=== PATIENT | female | born 1940 | race Caucasian/White ===

== ENCOUNTER 2020-05-25 19:20 | Observation (INO) | payer MEDICARE, BC ==
--- NOTE | 2020-05-25 19:29 | EDM.PDOC ---
ED HPI GENERAL MEDICAL PROBLEM - General Chief Complaint: Cardiovascular Problem Stated Complaint: Dizziness Time Seen by Provider: 05/25/20 19:20 Source of Information: Reports: Patient, EMS History Limitations: Reports: No Limitations - History of Present Illness INITIAL COMMENTS - FREE TEXT/NARRATIVE: Tonight, at her residence she felt dizzy and flushed with warmth. Stated that her feet felt cold at the same time. Carpio dizzy lowered to the floor and crawled to the couch where she summoned her sister for assistance. When they arrived ambulance was called and transported to the emergency department. She is seated upright on the cart in no acute distress, demonstrating forgetfulness associated with her Alzheimer's dementia. She denies any pain or injury at this time prior to being moved onto the examination table in the emergency department from the ambulance gurney. Denies any fall or striking of her head. Denies any COVID 19 related issues stating she is predominantly at home with her sisters doing her grocery shopping for her. Has not had any contact that places her at risk. Onset: Today, Sudden Onset Date: 05/25/20 Onset Time: 18:30 Duration: Minutes: Location: Reports: Head Severity: Moderate Improves with: Reports: None Worsens with: Reports: None - Related Data Allergies Allergy/AdvReac Type Severity Reaction Status Date / Time No Known Drug Allergies Allergy Cannot Verified 05/25/20 19:58 Remember Home Meds: Home Meds Metoprolol Tartrate [Lopressor] 50 mg PO BID 10/21/14 [History] diazePAM [Diazepam] 2.5 mg PO TID PRN 10/21/14 [History] Cholecalciferol (Vitamin D3) [Vitamin D3] 2,000 unit PO QPM 05/25/20 [History] Clopidogrel Bisulfate [Clopidogrel] 75 mg PO DAILY 05/25/20 [History] Memantine HCl 5 mg PO BID 05/25/20 [History] amLODIPine Besylate [Amlodipine Besylate] 5 mg PO DAILY 05/25/20 [History] busPIRone [Buspar] 5 mg PO BEDTIME 05/25/20 [History] lisinopriL [Lisinopril] 40 mg PO DAILY 05/25/20 [History] Past Medical History HEENT History: Reports: Hard of Hearing, Impaired Vision Cardiovascular History: Reports: Heart Murmur, High Cholesterol, Hypertension Respiratory History: Reports: None Gastrointestinal History: Reports: None Genitourinary History: Reports: None, Chronic Renal Insuffiency 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 PATHOLOGIST History: Reports: Musculoskeletal History: Reports: None Neurological History: Reports: Alzheimers Disease, Headaches, Chronic, TIA, Vertigo Psychiatric History: Reports: Anxiety, Dementia Hematologic History: Reports: None Oncologic (Cancer) History: Reports: None Dermatologic History: Reports: None - Past Imaging History Past Imaging History: Reports: Cardiac Echo, Xray Social & Family History - Family History Family Medical History: Noncontributory - Living Situation & Occupation Living situation: Reports: ED ROS GENERAL - Review of Systems Review Of Systems: Comprehensive ROS is negative, except as noted in HPI. ED EXAM, GENERAL - Physical Exam Exam: See Below Free Text/Narrative:: Alert oriented to location. There is no evidence of cyanosis nor pallor. She is wearing glasses, PERRLA no icterus no injection, EOM intact. HEENT is negative to discharge or deformity. [place] moist mucous membranes with no erythema. Neck is soft supple no lymphadenopathy no JVD no carotid bruit appreciated. Thorax is clear no wheezes no crackles. Cardiac S1-S2 with a grade 1 systolic murmur best heard at the sternal margin at the base nonradiating. Abdomen is soft bowel sounds are present, there is no flank pain. There is no abdominal pain to percussion nor to palpation. 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 She is able to hold her arms straight out with no drift. She is able to move her feet in plantar flexion dorsiflexion with symmetrical strength no compensation issues. Neuro exam negative other than memory with a history of late onset Alzheimer's dementia. Exam Limited By: Other (Dementia) General Appearance: Alert EKG INTERPRETATION EKG Date: 05/25/20 Time: 19:36 Rhythm: NSR [place]: Normal P-Wave: Present QRS: Normal ST-T: Normal QT: Normal Comparison: No Change Course - Vital Signs Last Recorded V/S: Last Vital Signs Temp 36.5 C 05/25/20 19:30 Pulse 75 05/25/20 19:30 Resp 24 H 05/25/20 19:30 BP 149/87 H 05/25/20 19:30 Pulse Ox 100 05/25/20 19:30 - Orders/Labs/Meds Orders: Active Orders 24 hr Category Date Time Status Patient Status [ADT] Routine ADT 05/25/20 21:17 Ordered Cardiac Monitoring [RC] . DIRECTED Care 05/25/20 21:17 Ordered Oxygen Therapy [RC] PRN Care 05/25/20 21:02 Ordered Peripheral IV Care [RC] . DIRECTED Care 05/25/20 19:34 Active Chest 2V [CR] Stat Exams 05/25/20 19:28 Stop Req TROPONIN I [CHEM] Routine Lab 05/26/20 06:00 Ordered Sodium Chloride 0.9% [Normal Saline] 1,000 ml Med 05/25/20 19:45 Active IV ASDIRECTED Sodium Chloride 0.9% [Saline Flush] Med 05/25/20 19:33 Active 10 ml FLUSH Q8HR PRN Peripheral IV Insertion Adult [OM.PC] Routine Oth 05/25/20 19:34 Ordered Code Status [Resuscitation Status] Stat Resus Stat 05/25/20 21:16 Ordered EKG 12 Lead [EK] Urgent Ther 05/25/20 19:27 Stop Req Medication Orders Sodium Chloride (Normal Saline) 1,000 mls @ 999 mls/hr IV ASDIRECTED JOON Stop: 05/29/20 19:34 Last Admin: 05/25/20 19:52 Dose: 999 mls/hr Documented by: JOSELYN Sodium Chloride (Saline Flush) 10 ml FLUSH Q8HR PRN PRN Reason: keep vein open Labs: Laboratory Tests 05/25/20 05/25/20 05/25/20 Range/Units 19:40 19:40 19:40 WBC 6.57 (5.00-10.00) 10^3/uL RBC 4.25 (3.80-5.50) 10^6/uL Hgb 13.2 (12.0-16.0) g/dL Hct 38.3 (37.0-47.0) % MCV 90.1 (82.0-92.0) fL MCH 31.1 H (27.0-31.0) pg MCHC 34.5 (32.0-36.0) g/dL RDW 12.5 (11.5-14.5) % Plt Count 227 (150-400) 10^3/uL MPV 11.7 H (7.4-10.4) fL Immature Gran % (Auto) 0.3 (0.0-5.0) % Neut % (Auto) 60.1 (50.0-70.0) % Lymph % (Auto) 30.6 (20.0-40.0) % [place] % (Auto) 7.9 (2.0-8.0) % Eos % (Auto) 0.8 L (1.0-3.0) % Baso % (Auto) 0.3 (0.0-1.0) % Neut # (Auto) 3.95 (2.50-7.00) 10^3/uL Lymph # (Auto) 2.01 (1.00-4.00) 10^3/uL [place] # (Auto) 0.52 (0.10-0.80) 10^3/uL Eos # (Auto) 0.05 L (0.10-0.30) 10^3/uL Baso # (Auto) 0.02 (0.00-0.10) 10^3/uL Immature Gran # (Auto) 0.02 (0.00-0.50) 10^3/uL Sodium 140 (136-145) mmol/L Potassium 3.6 (3.3-5.3) mmol/L Chloride 103 (98-115) mmol/L Carbon Dioxide 24.5 (21.0-32.0) mmol/L Anion Gap 16.1 H (5-15) mmol/L BUN 23 (6-25) mg/dL Creatinine 1.14 (0.51-1.17) mg/dL Est Cr Clr Drug Dosing 30.69 mL/min Estimated GFR (MDRD) 46 mL/min Glucose 118 H (75 - 99) mg/dL Lactic Acid 1.8 (0.4-2.0) mmol/L Calcium 9.4 (8.7-10.3) mg/dL Total Bilirubin 0.4 (0.2-1.0) mg/dL AST 28 (15-37) U/L ALT 37 (12-78) U/L Alkaline Phosphatase 66 (46-116) IU/L Creatine Kinase 117 (26-276) U/L CK-MB (CK-2) 1.90 (0.00-4.30) ng/mL Troponin I 0.08 H* (0.00-0.070) ng/mL Total Protein 7.8 (6.4-8.2) g/dL Albumin 3.86 (3.00-4.80) g/dL Specimen Type Urine Color (YELLOW) Urine Appearance (CLEAR) Urine pH (5.0-9.0) Ur Specific [place] (1.005-1.030) Urine Protein (NEGATIVE) mg/dL Urine Glucose (UA) (NEGATIVE) mg/dL Urine Ketones (NEGATIVE) mg/dL Urine Occult Blood (NEGATIVE) Urine Nitrite (NEGATIVE) Urine Bilirubin (NEGATIVE) Urine Urobilinogen (0.2-1.0) E.U./dL Ur Leukocyte Esterase (NEGATIVE) Urine RBC (0-5) /HPF Urine WBC (0-5) /HPF Ur Epithelial Cells /LPF Urine Bacteria (NONE TO FEW) /HPF COVID-19 (CRISTELA) (NEGATIVE) 05/25/20 05/25/20 Range/Units 20:25 20:35 WBC (5.00-10.00) 10^3/uL RBC (3.80-5.50) 10^6/uL Hgb (12.0-16.0) g/dL Hct (37.0-47.0) % MCV (82.0-92.0) fL MCH (27.0-31.0) pg MCHC (32.0-36.0) g/dL RDW (11.5-14.5) % Plt Count (150-400) 10^3/uL MPV (7.4-10.4) fL Immature Gran % (Auto) (0.0-5.0) % Neut % (Auto) (50.0-70.0) % Lymph % (Auto) (20.0-40.0) % [place] % (Auto) (2.0-8.0) % Eos % (Auto) (1.0-3.0) % Baso % (Auto) (0.0-1.0) % Neut # (Auto) (2.50-7.00) 10^3/uL Lymph # (Auto) (1.00-4.00) 10^3/uL [place] # (Auto) (0.10-0.80) 10^3/uL Eos # (Auto) (0.10-0.30) 10^3/uL Baso # (Auto) (0.00-0.10) 10^3/uL Immature Gran # (Auto) (0.00-0.50) 10^3/uL Sodium (136-145) mmol/L Potassium (3.3-5.3) mmol/L Chloride (98-115) mmol/L Carbon Dioxide (21.0-32.0) mmol/L Anion Gap (5-15) mmol/L BUN (6-25) mg/dL Creatinine (0.51-1.17) mg/dL Est Cr Clr Drug Dosing mL/min Estimated GFR (MDRD) mL/min Glucose (75 - 99) mg/dL Lactic Acid (0.4-2.0) mmol/L Calcium (8.7-10.3) mg/dL Total Bilirubin (0.2-1.0) mg/dL AST (15-37) U/L ALT (12-78) U/L Alkaline Phosphatase (46-116) IU/L Creatine Kinase (26-276) U/L CK-MB (CK-2) (0.00-4.30) ng/mL Troponin I (0.00-0.070) ng/mL Total Protein (6.4-8.2) g/dL Albumin (3.00-4.80) g/dL Specimen Type Urincc Urine Color Light yellow (YELLOW) Urine Appearance Slightly cloudy H (CLEAR) Urine pH 7.5 (5.0-9.0) Ur Specific [place] 1.015 (1.005-1.030) Urine Protein Negative (NEGATIVE) mg/dL Urine Glucose (UA) Negative (NEGATIVE) mg/dL Urine Ketones Negative (NEGATIVE) mg/dL Urine Occult Blood Trace-lysed H (NEGATIVE) Urine Nitrite Negative (NEGATIVE) Urine Bilirubin Negative (NEGATIVE) Urine Urobilinogen 0.2 (0.2-1.0) E.U./dL Ur Leukocyte Esterase Negative (NEGATIVE) Urine RBC 0-5 (0-5) /HPF Urine WBC 0-5 (0-5) /HPF Ur Epithelial Cells Few /LPF Urine Bacteria Few (NONE TO FEW) /HPF COVID-19 (CRISTELA) Negative (NEGATIVE) Meds: Medications Generic Name Dose Route Start Last Admin Trade Name Freq PRN Reason Stop Dose Admin Sodium Chloride 1,000 mls @ 999 mls/hr 05/25/20 19:45 05/25/20 19:52 Normal Saline IV 05/29/20 19:34 999 mls/hr ASDIRECTED JOON Administration Sodium Chloride 10 ml 05/25/20 19:33 Saline Flush FLUSH Q8HR PRN keep vein open Departure - Departure Time of Disposition: 21:21 Disposition: Refer to Observation Condition: Good Clinical Impression: Elevated troponin I measurement, History of vertigo, Dizziness - Discharge Information *PRESCRIPTION DRUG MONITORING PROGRAM REVIEWED*: Not Applicable *COPY OF PRESCRIPTION DRUG MONITORING REPORT IN PATIENT IZABELA: Not Applicable Referrals: Kiera Nevarez PA-C [Primary Care Provider] - Forms: ED Department Discharge Additional Instructions: Referred to observation status Rule out [place] per Neymar Hardwick. Sepsis Event Note (ED) - Focused Exam Vital Signs: Vital Signs Temp Pulse Resp BP Pulse Ox 05/25/20 19:30 36.5 C 75 24 H 149/87 H 100 ED Communication - ED Communication Date/Time Date: 05/25/20 Time Called: 20:50 - Discussed Case With (1) Discussed Case With (1): Admitting Provider Person/s Notified (1): Emiliano Hardwick - Conversation Summary Admitting Provider Agreed to Patient's Admission: Yes - Problem List & Annotations (1) Dizziness SNOMED Code(s): 534326877, 308705102 Code(s): R42 - DIZZINESS AND GIDDINESS Status: Acute Priority: High (2) History of vertigo SNOMED Code(s): 621703073 Code(s): Z87.898 - PERSONAL HISTORY OF OTHER SPECIFIED CONDITIONS Status: Chronic Priority: Medium (3) History of renal insufficiency SNOMED Code(s): 34102073314564 Code(s): Z87.448 - PERSONAL HISTORY OF OTHER DISEASES OF URINARY SYSTEM Status: Chronic Priority: Medium (4) Dementia SNOMED Code(s): 74177278 Code(s): F03.90 - UNSPECIFIED DEMENTIA WITHOUT BEHAVIORAL DISTURBANCE Status: Chronic Priority: Medium Qualifiers: Dementia type: Alzheimer's disease Alzheimer's disease onset: late-onset Dementia behavioral disturbance: without behavioral disturbance Qualified Code(s): G30.1 - Alzheimer's disease with late onset; F02.80 - Dementia in other diseases classified elsewhere without behavioral disturbance (5) Elevated troponin I measurement SNOMED Code(s): 198987671 Code(s): R79.89 - OTHER SPECIFIED ABNORMAL FINDINGS OF BLOOD CHEMISTRY Status: Acute Priority: High (6) Chest pain, rule out acute myocardial infarction SNOMED Code(s): 83918797 Code(s): R07.9 - CHEST PAIN, UNSPECIFIED Status: Acute Priority: High - Problem List Review Problem List Initiated/Reviewed/Updated: Yes - My Orders Last 24 Hours: My Active Orders 05/25/20 19:27 EKG 12 Lead [EK] Urgent 05/25/20 19:28 Chest 2V [CR] Stat 05/25/20 19:33 Sodium Chloride 0.9% [Saline Flush] 10 ml FLUSH Q8HR PRN 05/25/20 19:34 Peripheral IV Care [RC] . DIRECTED Peripheral IV Insertion Adult [OM.PC] Routine 05/25/20 19:45 Sodium Chloride 0.9% [Normal Saline] 1,000 ml IV ASDIRECTED 05/25/20 21:02 Oxygen Therapy [RC] PRN 05/25/20 21:16 Code Status [Resuscitation Status] Stat 05/25/20 21:17 Patient Status [ADT] Routine Cardiac Monitoring [RC] . DIRECTED 05/26/20 06:00 TROPONIN I [CHEM] Routine - Assessment/Plan Last 24 Hours: My Active Orders 05/25/20 19:27 EKG 12 Lead [EK] Urgent 05/25/20 19:28 Chest 2V [CR] Stat 05/25/20 19:33 Sodium Chloride 0.9% [Saline Flush] 10 ml FLUSH Q8HR PRN 05/25/20 19:34 Peripheral IV Care [RC] . DIRECTED Peripheral IV Insertion Adult [OM.PC] Routine 05/25/20 19:45 Sodium Chloride 0.9% [Normal Saline] 1,000 ml IV ASDIRECTED 05/25/20 21:02 Oxygen Therapy [RC] PRN 05/25/20 21:16 Code Status [Resuscitation Status] Stat 05/25/20 21:17 Patient Status [ADT] Routine Cardiac Monitoring [RC] . DIRECTED 05/26/20 06:00 TROPONIN I [CHEM] Routine Plan: Referred to observation status Rule out [place] per Emiliano Blackmon.
[2020-05-25] MEDS ORDERED: Sodium Chloride 0.9% 10 ML Syringe FLUSH PRN (19:33)
[2020-05-25] MEDS ORDERED: Sodium Chloride 0.9% 1,000 ML IV SCH (19:45)
[2020-05-25 20:13] LABS: ANION GAP 16.1 mmol/L (5-15)
--- NOTE | 2020-05-25 22:22 | CR ---
[id number] RAD/RAD Chest PA And Lateral EXAM: RAD Chest PA And Lateral INDICATION: SYNCOPE COMPARISON: None. DISCUSSION: Cardiomediastinal silhouette is normal in size and contour. Bilateral symmetric lung hyperinflation, nonspecific but commonly seen as sequela of chronic obstructive pulmonary disease. Biapical scarring. No infiltrate, effusion, pneumothorax, or edema. IMPRESSION: As above. Randy Tafoya MD 05/25/20 4534 Thank you for allowing us to participate in the care of your patient.
[2020-05-25] MEDS ORDERED: Diazepam 5 MG Tab PO PRN (23:15)
[2020-05-26] MEDS ORDERED: Metoprolol Tartrate 25 MG Tab PO ONE (00:15)
[2020-05-26] MEDS ORDERED: busPIRone 5 MG Tab PO ONE (00:15)
[2020-05-26] MEDS: busPIRone 5 MG Tab ONE ×2 (00:21→15:07)
[2020-05-26] MEDS: Metoprolol Tartrate 25 MG Tab ONE ×2 (00:21→15:07)
[2020-05-26] MEDS ORDERED: Acetaminophen 325 MG Tab PO PRN (02:13)
[2020-05-26] MEDS ORDERED: Metoprolol Tartrate 50 MG Tab PO SCH (09:00)
[2020-05-26] MEDS: Lisinopril 20 MG Tab PO SCH (10:13)
[2020-05-26] MEDS: Memantine 10 MG Tab PO SCH ×2 (10:14→20:19)
[2020-05-26] MEDS: amLODIPine 5 MG Tab PO SCH (10:14)
[2020-05-26] MEDS: Clopidogrel 75 MG Tab PO SCH (10:14)
--- NOTE | 2020-05-26 13:27 | PCM.HP.2 ---
H&P History of Present Illness - General Date of Service: 05/26/20 Admit Problem/Dx: Admission Diagnosis/Problem Admission Diagnosis/Problem Elevated troponin level Source of Information: Patient, Family, Old Records, Provider, RN History Limitations: Reports: Altered Mental Status - Related Data Allergies/Adverse Reactions: Allergies Allergy/AdvReac Type Severity Reaction Status Date / Time No Known Drug Allergies Allergy Cannot Verified 05/25/20 19:58 Remember Home Medications: Home Meds diazePAM [Diazepam] 2.5 mg PO TID PRN 10/21/14 [History] busPIRone [Buspar] 5 mg PO BEDTIME 05/25/20 [History] Cholecalciferol (Vitamin D3) [Vitamin D3] 2,000 unit PO QPM #30 05/27/20 [Rx] Clopidogrel Bisulfate [Clopidogrel] 75 mg PO DAILY #30 05/27/20 [Rx] Memantine HCl 5 mg PO BID #60 05/27/20 [Rx] Metoprolol Tartrate [Lopressor] 25 mg PO BID #60 05/27/20 [Rx] amLODIPine Besylate [Amlodipine Besylate] 5 mg PO DAILY #30 05/27/20 [Rx] atorvaSTATin [Lipitor] 20 mg PO BEDTIME #30 05/27/20 [Rx] busPIRone [Buspar] 5 mg PO BEDTIME #30 tablet 05/27/20 [Rx] diazePAM [Valium.] 2.5 mg PO TID PRN #30 tablet 05/27/20 [Rx] lisinopriL [Lisinopril] 40 mg PO DAILY #30 05/27/20 [Rx] Past Medical History HEENT History: Reports: Hard of Hearing, Impaired Vision Cardiovascular History: Reports: Heart Murmur, High Cholesterol, Hypertension Respiratory History: Reports: None Gastrointestinal History: Reports: None Genitourinary History: Reports: None, Chronic Renal Insuffiency 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: Musculoskeletal History: Reports: None Neurological History: Reports: Alzheimers Disease, Headaches, Chronic, TIA, Vertigo Psychiatric History: Reports: Anxiety, Dementia Hematologic History: Reports: None Oncologic (Cancer) History: Reports: None Dermatologic History: Reports: None - Past Imaging History Past Imaging History: Reports: Cardiac Echo, Xray Social & Family History - Family History Family Medical History: Noncontributory - Tobacco Use Smoking Status *Q: Never Smoker - Caffeine Use Caffeine Use: Reports: None - Recreational Drug Use Recreational Drug Use: No - Living Situation & Occupation Living situation: Reports: H&P Review of Systems - Review of Systems: Review Of Systems: See Below General: Reports: No Symptoms HEENT: Reports: No Symptoms Pulmonary: Reports: No Symptoms Cardiovascular: Denies: Chest Pain, Palpitations, Dyspnea on Exertion, Edema, Lightheadedness Gastrointestinal: Reports: No Symptoms Genitourinary: Reports: No Symptoms Musculoskeletal: Reports: No Symptoms Skin: Reports: No Symptoms Psychiatric: Reports: Confusion Neurological: Reports: No Symptoms Hematologic/Lymphatic: Reports: No Symptoms Immunologic: Reports: No Symptoms Exam - Exam Exam: See Below - Vital Signs Vital Signs: Last Vital Signs Temp 97.4 F 05/26/20 11:00 Pulse 62 05/26/20 11:00 Resp 20 05/26/20 11:00 BP 147/98 H 05/26/20 11:00 Pulse Ox 99 05/26/20 11:00 Weight: 102 lb - Exam Quality Assessment: No: Supplemental Oxygen General: Alert, Cooperative. No: Oriented, Mild Distress Neck: Supple Lungs: Clear to Auscultation, Normal Respiratory Effort Cardiovascular: Regular Rate, Regular Rhythm GI/Abdominal Exam: Normal Bowel Sounds, Soft (Female) Exam: Deferred Back Exam: No: CVA Tenderness (L), CVA Tenderness (R) Peripheral Pulses: 2+: Radial (L), Radial (R) Neurological: No: Sensation Intact Neuro Extensive - Mental Status: Alert, Normal Mood/Affect, Normal Cognition. No: Oriented x3, Memory Intact Neuro Extensive - Motor, Sensory, Reflexes: CN II-XII Intact. No: Tongue Deviation (L), Tongue Deviation (R), Facial palsy (L) Psychiatric: Alert, Normal Affect, Normal Mood - Patient Data Lab Results Last 24 hrs: Laboratory Results - last 24 hr 05/25/20 05/25/20 05/25/20 Range/Units 19:40 19:40 19:40 WBC 6.57 (5.00-10.00) 10^3/uL RBC 4.25 (3.80-5.50) 10^6/uL Hgb 13.2 (12.0-16.0) g/dL Hct 38.3 (37.0-47.0) % MCV 90.1 (82.0-92.0) fL MCH 31.1 H (27.0-31.0) pg MCHC 34.5 (32.0-36.0) g/dL RDW 12.5 (11.5-14.5) % Plt Count 227 (150-400) 10^3/uL MPV 11.7 H (7.4-10.4) fL Immature Gran % (Auto) 0.3 (0.0-5.0) % Neut % (Auto) 60.1 (50.0-70.0) % Lymph % (Auto) 30.6 (20.0-40.0) % [place] % (Auto) 7.9 (2.0-8.0) % Eos % (Auto) 0.8 L (1.0-3.0) % Baso % (Auto) 0.3 (0.0-1.0) % Neut # (Auto) 3.95 (2.50-7.00) 10^3/uL Lymph # (Auto) 2.01 (1.00-4.00) 10^3/uL [place] # (Auto) 0.52 (0.10-0.80) 10^3/uL Eos # (Auto) 0.05 L (0.10-0.30) 10^3/uL Baso # (Auto) 0.02 (0.00-0.10) 10^3/uL Immature Gran # (Auto) 0.02 (0.00-0.50) 10^3/uL Sodium 140 (136-145) mmol/L Potassium 3.6 (3.3-5.3) mmol/L Chloride 103 (98-115) mmol/L Carbon Dioxide 24.5 (21.0-32.0) mmol/L Anion Gap 16.1 H (5-15) mmol/L BUN 23 (6-25) mg/dL Creatinine 1.14 (0.51-1.17) mg/dL Est Cr Clr Drug Dosing 30.69 mL/min Estimated GFR (MDRD) 46 mL/min Glucose 118 H (75 - 99) mg/dL Lactic Acid 1.8 (0.4-2.0) mmol/L Calcium 9.4 (8.7-10.3) mg/dL Total Bilirubin 0.4 (0.2-1.0) mg/dL AST 28 (15-37) U/L ALT 37 (12-78) U/L Alkaline Phosphatase 66 (46-116) IU/L Creatine Kinase 117 (26-276) U/L CK-MB (CK-2) 1.90 (0.00-4.30) ng/mL Troponin I 0.08 H* (0.00-0.070) ng/mL Total Protein 7.8 (6.4-8.2) g/dL Albumin 3.86 (3.00-4.80) g/dL Specimen Type Urine Color (YELLOW) Urine Appearance (CLEAR) Urine pH (5.0-9.0) Ur Specific Molt (1.005-1.030) Urine Protein (NEGATIVE) mg/dL Urine Glucose (UA) (NEGATIVE) mg/dL Urine Ketones (NEGATIVE) mg/dL Urine Occult Blood (NEGATIVE) Urine Nitrite (NEGATIVE) Urine Bilirubin (NEGATIVE) Urine Urobilinogen (0.2-1.0) E.U./dL Ur Leukocyte Esterase (NEGATIVE) Urine RBC (0-5) /HPF Urine WBC (0-5) /HPF Ur Epithelial Cells /LPF Urine Bacteria (NONE TO FEW) /HPF COVID-19 (CRISTELA) (NEGATIVE) 05/25/20 05/25/20 05/26/20 Range/Units 20:25 20:35 07:28 WBC (5.00-10.00) 10^3/uL RBC (3.80-5.50) 10^6/uL Hgb (12.0-16.0) g/dL Hct (37.0-47.0) % MCV (82.0-92.0) fL MCH (27.0-31.0) pg MCHC (32.0-36.0) g/dL RDW (11.5-14.5) % Plt Count (150-400) 10^3/uL MPV (7.4-10.4) fL Immature Gran % (Auto) (0.0-5.0) % Neut % (Auto) (50.0-70.0) % Lymph % (Auto) (20.0-40.0) % [place] % (Auto) (2.0-8.0) % Eos % (Auto) (1.0-3.0) % Baso % (Auto) (0.0-1.0) % Neut # (Auto) (2.50-7.00) 10^3/uL Lymph # (Auto) (1.00-4.00) 10^3/uL [place] # (Auto) (0.10-0.80) 10^3/uL Eos # (Auto) (0.10-0.30) 10^3/uL Baso # (Auto) (0.00-0.10) 10^3/uL Immature Gran # (Auto) (0.00-0.50) 10^3/uL Sodium (136-145) mmol/L Potassium (3.3-5.3) mmol/L Chloride (98-115) mmol/L Carbon Dioxide (21.0-32.0) mmol/L Anion Gap (5-15) mmol/L BUN (6-25) mg/dL Creatinine (0.51-1.17) mg/dL Est Cr Clr Drug Dosing mL/min Estimated GFR (MDRD) mL/min Glucose (75 - 99) mg/dL Lactic Acid (0.4-2.0) mmol/L Calcium (8.7-10.3) mg/dL Total Bilirubin (0.2-1.0) mg/dL AST (15-37) U/L ALT (12-78) U/L Alkaline Phosphatase (46-116) IU/L Creatine Kinase (26-276) U/L CK-MB (CK-2) (0.00-4.30) ng/mL Troponin I 0.07 (0.00-0.070) ng/mL Total Protein (6.4-8.2) g/dL Albumin (3.00-4.80) g/dL Specimen Type Urincc Urine Color Light yellow (YELLOW) Urine Appearance Slightly cloudy H (CLEAR) Urine pH 7.5 (5.0-9.0) Ur Specific Molt 1.015 (1.005-1.030) Urine Protein Negative (NEGATIVE) mg/dL Urine Glucose (UA) Negative (NEGATIVE) mg/dL Urine Ketones Negative (NEGATIVE) mg/dL Urine Occult Blood Trace-lysed H (NEGATIVE) Urine Nitrite Negative (NEGATIVE) Urine Bilirubin Negative (NEGATIVE) Urine Urobilinogen 0.2 (0.2-1.0) E.U./dL Ur Leukocyte Esterase Negative (NEGATIVE) Urine RBC 0-5 (0-5) /HPF Urine WBC 0-5 (0-5) /HPF Ur Epithelial Cells Few /LPF Urine Bacteria Few (NONE TO FEW) /HPF COVID-19 (CRISTELA) Negative (NEGATIVE) Result Diagrams: 05/25/20 19:40 05/25/20 19:40 Sepsis Event Note - Evaluation Sepsis Screening Result: No Definite Risk - Focused Exam Vital Signs: Vital Signs Temp Pulse Pulse Resp BP BP Pulse Ox 05/26/20 11:00 97.4 F 62 20 147/98 H 99 05/26/20 10:14 66 132/80 05/26/20 10:13 132/80 05/26/20 06:19 99.4 F 68 18 142/67 H 99 05/26/20 03:00 99.2 F 62 18 110/57 L 98 Problem List Initiated/Reviewed/Updated: Yes Orders Last 24hrs: Active Orders 24 hr Category Date Time Status Patient Status [ADT] Routine ADT 05/25/20 21:17 Active Activity as Tolerated [RC] .Routine Care 05/26/20 07:53 Active Dietary Supplements [RC] ACBED Care 05/26/20 08:45 Active Oxygen Therapy [RC] PRN Care 05/25/20 21:02 Active Vital Signs [RC] 0700,1500,2300 Care 05/26/20 13:03 Active Heart Healthy Diet [DIET] Diet 05/26/20 Breakfast Active Acetaminophen [TylenoL] Med 05/26/20 02:13 Active 325 mg PO Q4H PRN Clopidogrel [Plavix] Med 05/26/20 09:00 Active 75 mg PO DAILY Memantine [Namenda] Med 05/26/20 09:00 Active 5 mg PO BID Metoprolol Tartrate [Lopressor] Med 05/26/20 09:00 Active 25 mg PO BID Sodium Chloride 0.9% [Normal Saline] 1,000 ml Med 05/25/20 19:45 Active IV ASDIRECTED Sodium Chloride 0.9% [Saline Flush] Med 05/25/20 19:33 Active 10 ml FLUSH Q8HR PRN amLODIPine [Norvasc] Med 05/26/20 09:00 Active 5 mg PO DAILY atorvaSTATin [Lipitor] Med 05/26/20 21:00 Active 20 mg PO BEDTIME busPIRone [Buspar] Med 05/26/20 21:00 Active 5 mg PO BEDTIME diazePAM [Valium.] Med 05/25/20 23:15 Active 2.5 mg PO TID PRN lisinopriL [Prinivil] Med 05/26/20 09:00 Active 40 mg PO DAILY Peripheral IV Insertion Adult [OM.PC] Routine Oth 05/25/20 19:34 Ordered Code Status [Resuscitation Status] Stat Resus Stat 05/25/20 21:16 Ordered Medication Orders Acetaminophen (Tylenol) 325 mg PO Q4H PRN PRN Reason: Pain Last Admin: 05/26/20 02:26 Dose: 325 mg Documented by: ELIZABETH Amlodipine Besylate (Norvasc) 5 mg PO DAILY [facility] Last Admin: 05/26/20 10:14 Dose: 5 mg Documented by: TINY Atorvastatin Calcium (Lipitor) 20 mg PO BEDTIME [facility] Buspirone HCl (Buspar) 5 mg PO BEDTIME [facility] Clopidogrel Bisulfate (Plavix) 75 mg PO DAILY [facility] Last Admin: 05/26/20 10:14 Dose: 75 mg Documented by: TINY Diazepam (Valium.) 2.5 mg PO TID PRN PRN Reason: Anxiety Sodium Chloride (Normal Saline) 1,000 mls @ 999 mls/hr IV ASDIRECTED [facility] Stop: 05/29/20 19:34 Last Admin: 05/25/20 19:52 Dose: 999 mls/hr Documented by: JOSELYN Lisinopril (Prinivil) 40 mg PO DAILY [facility] Last Admin: 05/26/20 10:13 Dose: 40 mg Documented by: TINY Memantine (Namenda) 5 mg PO BID [facility] Last Admin: 05/26/20 10:14 Dose: 5 mg Documented by: TINY Metoprolol Tartrate (Lopressor) 25 mg PO BID [facility] Last Admin: 05/26/20 10:14 Dose: 25 mg Documented by: TINY Sodium Chloride (Saline Flush) 10 ml FLUSH Q8HR PRN PRN Reason: keep vein open Assessment/Plan Comment:: History of present illness 79 -year-old female was admitted through the ED due to a brief episode of syncope. Patient lives alone in an apartment stated last night she got up and felt like she was cut and passed out so she laid down on the couch. She got quite nervous and then eventually family checked up on her and brought her to the ED. Patient stated she felt flushed and warm got quite anxious and started panicking. She lowered herself to the floor and crawled to her couch. She does have a history of cognitive decline in his currently on Namenda. She does have a history of epidemic vertigo. Her ED workup Trop 0.08 EKG normal sinus rhythm. UA, non-concerning Covid-19 Neg Primary Hospital Problems Rule out [place], this has been ruled out Pre-Syncope, likely anxiety/psychogenic given her history Chronic Stable problems Epidemic vertigo, hx, her current presyncope not consistent epidemic vertigo History of CKD Essential hypertension, metoprolol Hyperlipidemia, atorvastatin Alzheimer's disease, Namenda General anxiety disorder, SSRI History of TIA, clopidogrel Disposition/overall plan --Continued observation status until senior living placement likely tomorrow. --Social service consultation --Removed telemetry --Outpatient carotid ultrasound - Mortality Measure Prognosis:: Good
[2020-05-26] MEDS: Metoprolol Tartrate 25 MG Tab PO SCH (20:20)
[2020-05-26] MEDS ORDERED: busPIRone 10 MG Tab PO SCH (21:00)
[2020-05-26] MEDS ORDERED: atorvaSTATin 10 MG Tab PO SCH (21:00)
[2020-05-26] MEDS ORDERED: busPIRone 5 MG Tab PO SCH (21:00)
[2020-05-27] MEDS: Metoprolol Tartrate 25 MG Tab PO SCH (08:16)
[2020-05-27] MEDS: Lisinopril 20 MG Tab PO SCH (08:17)
[2020-05-27] MEDS: amLODIPine 5 MG Tab PO SCH (08:17)
[2020-05-27] MEDS: Clopidogrel 75 MG Tab PO SCH (08:17)
[2020-05-27 08:18] VITALS: BP 118/63; PULSE 80
[2020-05-27] MEDS: Memantine 10 MG Tab PO SCH (08:18)
--- NOTE | 2020-05-27 10:13 | PCM.DCSUM1 ---
Discharge Summary - Hospital Course Diagnosis: Stroke: No - Discharge Data Discharge Date: 05/27/20 Discharge Disposition: DC/Tfer to [employer] 64 Condition: Good - Referral to Home Health Primary Care Physician: Kiera Nevarez PA-C - Discharge Plan *PRESCRIPTION DRUG MONITORING PROGRAM REVIEWED*: Not Applicable *COPY OF PRESCRIPTION DRUG MONITORING REPORT IN PATIENT IZABELA: Not Applicable Prescriptions/Med Rec: amLODIPine Besylate [Amlodipine Besylate] 5 mg PO DAILY #30 busPIRone [Buspar] 5 mg PO BEDTIME #30 tablet Clopidogrel Bisulfate [Clopidogrel] 75 mg PO DAILY #30 atorvaSTATin [Lipitor] 20 mg PO BEDTIME #30 lisinopriL [Lisinopril] 40 mg PO DAILY #30 Metoprolol Tartrate [Lopressor] 25 mg PO BID #60 Memantine HCl 5 mg PO BID #60 diazePAM [Valium.] 2.5 mg PO TID PRN #30 tablet PRN Reason: Anxiety Cholecalciferol (Vitamin D3) [Vitamin D3] 2,000 unit PO QPM #30 Home Medications: Home Meds diazePAM [Diazepam] 2.5 mg PO TID PRN 10/21/14 [History] busPIRone [Buspar] 5 mg PO BEDTIME 05/25/20 [History] Cholecalciferol (Vitamin D3) [Vitamin D3] 2,000 unit PO QPM #30 05/27/20 [Rx] Clopidogrel Bisulfate [Clopidogrel] 75 mg PO DAILY #30 05/27/20 [Rx] Memantine HCl 5 mg PO BID #60 05/27/20 [Rx] Metoprolol Tartrate [Lopressor] 25 mg PO BID #60 05/27/20 [Rx] amLODIPine Besylate [Amlodipine Besylate] 5 mg PO DAILY #30 05/27/20 [Rx] atorvaSTATin [Lipitor] 20 mg PO BEDTIME #30 05/27/20 [Rx] busPIRone [Buspar] 5 mg PO BEDTIME #30 tablet 05/27/20 [Rx] diazePAM [Valium.] 2.5 mg PO TID PRN #30 tablet 05/27/20 [Rx] lisinopriL [Lisinopril] 40 mg PO DAILY #30 05/27/20 [Rx] - Discharge Summary/Plan Comment DC Time >30 min.: Yes Discharge Summary/Plan Comment: Final diagnosis Rule out [place], this has been ruled out Pre-Syncope, likely anxiety/psychogenic, not consistent epidemic vertigo Alzheimer's pre-existing Chronic Stable problems Epidemic vertigo, hx, History of CKD Essential hypertension, metoprolol Hyperlipidemia, atorvastatin Alzheimer's disease, Namenda General anxiety disorder, History of TIA, clopidogrel History summary 79 -year-old female was admitted through the ED due to a brief episode of what was initially determined to be a presyncopal episode. Patient lives alone in an apartment stated that she got up and felt like she was going to pass out. She got quite nervous and then eventually family checked up on her and brought her to the ED. Patient stated she felt flushed and warm got quite anxious and started panicking. She lowered herself to the floor and crawled to her couch. She does have a history of cognitive decline in his currently on Namenda. She does have a history of epidemic vertigo along with a history of a TIA and currently on Plavix. She has a history of essential hypertension currently con trolled on metoprolol and IOANA inhibitor, Alzheimer's disease, hyperlipidemia currently on statin therapy. ED workup Trop 0.08 EKG normal sinus rhythm. UA, non-concerning Covid-19 Neg Hospital course Although she did have a very slight elevated troponin at 0.08 this trended down to normal, she never had chest pain, she remained on Plavix. EKG normal sinus rhythm, she was placed on telemetry with no concerning signs or PVCs. It was determined noncardiac related as her history was likely conducive to her anxiety and not consistent with epidemic vertigo. Therefore she was not placed on anticoagulation. Her hospital course was completely uneventful. Lecture lites were normal, albumin 3.86, UA non-concerning, afebrile. She remained 2 days into observation in order to prepare her for long-term care and monitor for any sequela. Received a carotid ultrasound prior to discharge Medication changes/adjustments upon discharge Changes none, continue with all home medications Disposition Patient will be transferred to [facility] provider to review carotid ultrasound results - General Info Functional Status: Reports: Pain Controlled - Review of Systems General: Reports: No Symptoms HEENT: Reports: No Symptoms Pulmonary: Reports: No Symptoms Cardiovascular: Reports: No Symptoms Gastrointestinal: Reports: No Symptoms Genitourinary: Reports: No Symptoms Musculoskeletal: Reports: No Symptoms Skin: Reports: No Symptoms Neurological: Denies: Confusion Psychiatric: Denies: Confusion, Agitation - Patient Data Vitals - Most Recent: Last Vital Signs Temp 99.1 F 05/27/20 06:06 Pulse 80 05/27/20 08:16 Resp 18 05/27/20 06:06 BP 118/63 05/27/20 08:17 Pulse Ox 99 05/27/20 06:06 Weight - Most Recent: 102 lb I&O - Last 24 hours: Intake & Output 05/26/20 05/27/20 05/27/20 22:59 06:59 14:59 Intake Total 1000 200 Balance 1000 200 Med Orders - Current: Current Medications Acetaminophen (Tylenol) 325 mg PO Q4H PRN PRN Reason: Pain Last Admin: 05/26/20 02:26 Dose: 325 mg Documented by: Amlodipine Besylate (Norvasc) 5 mg PO DAILY [facility] Last Admin: 05/27/20 08:17 Dose: 5 mg Documented by: Atorvastatin Calcium (Lipitor) 20 mg PO BEDTIME [facility] Last Admin: 05/26/20 20:19 Dose: 20 mg Documented by: Buspirone HCl (Buspar) 5 mg PO BEDTIME [facility] Last Admin: 05/26/20 20:20 Dose: 5 mg Documented by: Clopidogrel Bisulfate (Plavix) 75 mg PO DAILY [facility] Last Admin: 05/27/20 08:17 Dose: 75 mg Documented by: Diazepam (Valium.) 2.5 mg PO TID PRN PRN Reason: Anxiety Sodium Chloride (Normal Saline) 1,000 mls @ 999 mls/hr IV ASDIRECTED [facility] Stop: 05/29/20 19:34 Last Admin: 05/25/20 19:52 Dose: 999 mls/hr Documented by: Lisinopril (Prinivil) 40 mg PO DAILY [facility] Last Admin: 05/27/20 08:17 Dose: 40 mg Documented by: Memantine (Namenda) 5 mg PO BID [facility] Last Admin: 05/27/20 08:18 Dose: 5 mg Documented by: Metoprolol Tartrate (Lopressor) 25 mg PO BID [facility] Last Admin: 05/27/20 08:16 Dose: 25 mg Documented by: Sodium Chloride (Saline Flush) 10 ml FLUSH Q8HR PRN PRN Reason: keep vein open Discontinued Medications Buspirone HCl (Buspar) 5 mg PO BEDTIME [facility] Buspirone HCl (Buspar) Confirm Administered Dose 5 mg .ROUTE .STK-MED ONE Stop: 05/26/20 00:15 Last Admin: 05/26/20 15:07 Dose: Not Given Documented by: Buspirone HCl (Buspar) 5 mg PO ONETIME ONE Stop: 05/26/20 00:16 Last Admin: 05/26/20 00:21 Dose: 5 mg Documented by: Metoprolol Tartrate (Lopressor) 25 mg PO BID [facility] Last Admin: 05/26/20 10:14 Dose: 25 mg Documented by: Metoprolol Tartrate (Lopressor) Confirm Administered Dose 25 mg .ROUTE .STK-MED ONE Stop: 05/26/20 00:16 Last Admin: 05/26/20 15:07 Dose: Not Given Documented by: Metoprolol Tartrate (Lopressor) 25 mg PO ONETIME ONE Stop: 05/26/20 00:16 Last Admin: 05/26/20 00:21 Dose: 25 mg Documented by: - Exam Quality Assessment: Denies: Supplemental Oxygen General: Reports: Alert, Oriented, Cooperative, No Acute Distress Neck: Reports: Supple, +2 Carotid Pulse wo Bruit Lungs: Reports: Clear to Auscultation, Normal Respiratory Effort Cardiovascular: Reports: Regular Rate, Regular Rhythm GI/Abdominal Exam: Soft (Female) Exam: Deferred Neurological: Reports: Normal Gait, Normal Speech, Normal Tone, Strength Equal Bilateral, Sensation Intact Psy/Mental Status: Reports: Alert
--- NOTE | 2020-05-27 13:05 | US ---
[id number] US/US Carotid Bilateral EXAM: US Carotid Bilateral Clinical data: SYNCOPE.. COMPARISON STUDY: None FINDINGS: Peak systolic flow velocity measurements in cm/sec: CCA: 75 right, 80 left. ICA: 58 right, 66 left. Systolic ICA/CCA ratio: 0.8 right, 0.8 left. Vertebral artery flow is antegrade bilaterally. Small amount of calcified atherosclerotic plaque in both carotid arteries at the bifurcations. IMPRESSION: Bilateral carotid atherosclerosis with stenosis of less than 50% by velocity criteria. Randy Tafoya MD 05/27/20 [id number] Thank you for allowing us to participate in the care of your patient.
== END 2020-05-27 12:45 ==
LOC: KA.ED 19:20 → KA.MS 21:17 → UNDOADMOB 22:31
PROVIDERS: ADMIT Family Medicine; ATTEND Nurse Practitioner Family
DX: R55 Syncope and collapse (principal); G30.1 Alzheimer's disease with late onset; F02.80 Dementia in other diseases classified elsewhere, unspecified severity, without behavioral disturbance, psychotic disturbance, mood disturbance, and anxiety; I12.9 Hypertensive chronic kidney disease with stage 1 through stage 4 chronic kidney disease, or unspecified chronic kidney disease; N18.9 Chronic kidney disease, unspecified; E78.5 Hyperlipidemia, unspecified; F41.1 Generalized anxiety disorder; E78.00 Pure hypercholesterolemia, unspecified; R79.89 Other specified abnormal findings of blood chemistry; Z20.828 Contact with and (suspected) exposure to other viral communicable diseases; R07.9 Chest pain, unspecified; Z86.73 Personal history of transient ischemic attack (TIA), and cerebral infarction without residual deficits; Z86.69 Personal history of other diseases of the nervous system and sense organs; Z79.899 Other long term (current) drug therapy
CPT/HCPCS: 36415; 71046; 80053; 81001; 82550; 82553; 83605; 84484; 85025; 93005; 93880; 96360; 99284; 99285-25; A9270-GY; G0378; J7030; U0002